=== PATIENT | female | born 1955 | race Caucasian/White ===

== ENCOUNTER 2024-10-05 00:59 | Inpatient (IN) | payer MEDICARE, OTHER ==
[2024-10-04] MEDS: DOXYCYCLINE HYCLATE 100 MG TABLET PO SCH (20:28)
[~2024-10-05] VITALS: Ht 170.2 cm; Wt 55.7 kg
[2024-10-05 02:30] LABS: BASO # 0.0 10^3/uL (0.0-0.2); BASO % 0.4 % (0.0-1.0); EOS # 0.0 10^3/uL (0.0-0.5); EOS % 0.3 % (0.0-3.0); LYMPH # 1.3 10^3/uL (1.5-5.0); LYMPH % 18.8 % (24.0-44.0); MONO # 0.5 10^3/uL (0.0-0.8); MONO % 7.4 % (2.0-8.0); NEUTROPHILS # 5.2 10^3/uL (1.5-8.5); NEUTROPHILS % 72.7 % (36.0-66.0); PLATELET COUNT, AUTOMATED 240 10^3/uL (150-450)
[2024-10-05] MEDS: NS (Normal Saline) 0.9% 1,000 ML IV ONE (02:42)
[2024-10-05] MEDS ORDERED: ISOVUE-370 76% 100 ML VIAL As Ordered ONE (02:59)
[2024-10-05 03:06] LABS: ETHYL ALCOHOL (ETHANOL) < 0.003 % (0.000-0.010)
[2024-10-05 03:08] LABS: ALT/SGPT 40 U/L (7.0-40); AST/SGOT 70 U/L (<34); CALCIUM LEVEL 9.0 MG/DL (8.3-10.6); CARBON DIOXIDE LEVEL 26 MMOL/L (20-31); CHLORIDE LEVEL 97 MMOL/L (98-107); CK-MB VALUE MASS 13.9 NG/ML (<3.6); CREATININE FOR GFR 0.86 MG/DL (0.55-1.30); GLOMERULAR FILTRATION RATE 74.0 (>45); POTASSIUM SERUM 4.1 MMOL/L (3.5-5.1); SALICYLATE LEVEL < 3.0 MG/DL (<30); SODIUM LEVEL 131 MMOL/L (136-145)
[2024-10-05 03:19] LABS: CPK CREATINE PHOSPHOKINASE 1268 U/L (34-145); MB/CK RELATIVE INDEX 1.09 (< OR =4)
[2024-10-05 03:27] LABS: OSMOLALITY SERUM 279 MOSM/KG (280-301)
[2024-10-05] MEDS ORDERED: ACYCLOVIR 1,000 MG in D5W 250 ML IV ONE (05:05)
[2024-10-05 05:10] LABS: CK-MB VALUE MASS 12.5 NG/ML (<3.6)
[2024-10-05 05:22] LABS: CPK CREATINE PHOSPHOKINASE 1164.0 U/L (34-145); MB/CK RELATIVE INDEX 1.07 (< OR =4)
[2024-10-05 06:28] LABS: KETONE, URINE AUTO RFX NEGATIVE (NEGATIVE); LEUKOCYTE ESTERASE UR AUTO RFX NEGATIVE (NEGATIVE); NITRITE, URINE AUTO RFX NEGATIVE (NEGATIVE); RBC, URINE AUTO RFX 2 /HPF (0-3); SQUAM EPITHELIAL CELL UR AURFX 0 /HPF (0-6); WBC, URINE AUTO RFX 1 /HPF (0-3)
[2024-10-05] MEDS: MINI IV ONE (06:44)
[2024-10-05] MEDS: DEXTROSE 5% IV ONE (06:44)
[2024-10-05] MEDS: ACYCLOVIR IV ONE (06:44)
[2024-10-05 06:51] LABS: AMPHETAMINES LEVEL URINE NEGATIVE (NEGATIVE); BARBITURATES URINE NEGATIVE (NEGATIVE); BENZODIAZEPINES URINE NEGATIVE (NEGATIVE); CANNABINOIDS URINE NEGATIVE (NEGATIVE); COCAINE METABOLITE URINE NEGATIVE (NEGATIVE); METHADONE URINE NEGATIVE (NEGATIVE); OPIATES URINE NEGATIVE (NEGATIVE); PHENCYCLIDINE URINE NEGATIVE (NEGATIVE)
[2024-10-05] MEDS ORDERED: RALT40TA PO (08:34)
[2024-10-05] MEDS ORDERED: DOXY100C3 PO (08:34)
[2024-10-05] MEDS ORDERED: EMTR1TAB3 PO (08:34)
[2024-10-05] MEDS ORDERED: NORV100T PO (08:34)
[2024-10-05] MEDS ORDERED: PREZ600T3 PO (08:34)
[2024-10-05] MEDS ORDERED: HOME MED LIST COMPLETE! XX SCH ×3 (08:35)
[2024-10-05 08:45] LABS: INR 1.07
[2024-10-05] MEDS: MIDODRINE 5 MG TAB PO ONE ×2 (09:00→13:05)
[2024-10-05 09:02] LABS: CALCIUM LEVEL 8.2 MG/DL (8.3-10.6); CARBON DIOXIDE LEVEL 27.0 MMOL/L (20-31); CHLORIDE LEVEL 102.0 MMOL/L (98-107); CREATININE FOR GFR 0.86 MG/DL (0.55-1.30); GLOMERULAR FILTRATION RATE 74.0 (>45); POTASSIUM SERUM 4.3 MMOL/L (3.5-5.1); SODIUM LEVEL 135.0 MMOL/L (136-145)
[2024-10-05] MEDS: LR 1,000 ML IV ONE ×4 (09:09→14:43)
[2024-10-05] MEDS: NS (Normal Saline) 0.9% 1,000 ML IV SCH ×2 (13:00→14:42)
[2024-10-05 14:38] LABS: C REACTIVE PROTEIN QUANTITATIV 0.57 MG/DL (<1.0)
[2024-10-05] MEDS: D5W IV SCH (14:42)
[2024-10-05] MEDS: DOXYCYCLINE HYCLATE 100 MG TABLET PO ONE (14:42)
[2024-10-05] MEDS: ACYCLOVIR IV SCH (14:42)
[2024-10-05 17:08] VITALS: BP 154/73; TEMP 99; O2SAT 100
[2024-10-05 17:08] LABS: ERYTHROCYTE SEDIMENTATION RATE 23 mm/hr (0-30)
[2024-10-05 19:58] VITALS: BP 121/67; TEMP 98.9; O2SAT 99
[2024-10-05 21:08] VITALS: BP 137/73
[2024-10-05 23:20] VITALS: BP 134/74; TEMP 97.8; O2SAT 99
[2024-10-06 03:54] VITALS: BP 115/71; TEMP 99.7; O2SAT 99
[2024-10-06 06:28] LABS: BASO # 0.0 10^3/uL (0.0-0.2); BASO % 1.0 % (0.0-1.0); EOS # 0.1 10^3/uL (0.0-0.5); EOS % 2.1 % (0.0-3.0); LYMPH # 1.5 10^3/uL (1.5-5.0); LYMPH % 37.9 % (24.0-44.0); MONO # 0.5 10^3/uL (0.0-0.8); MONO % 11.5 % (2.0-8.0); NEUTROPHILS # 1.8 10^3/uL (1.5-8.5); NEUTROPHILS % 47.2 % (36.0-66.0); PLATELET COUNT, AUTOMATED 217 10^3/uL (150-450)
[2024-10-06 07:02] LABS: CALCIUM LEVEL 8.6 MG/DL (8.3-10.6); CARBON DIOXIDE LEVEL 25.0 MMOL/L (20-31); CHLORIDE LEVEL 102.0 MMOL/L (98-107); CK-MB VALUE MASS 12.7 NG/ML (<3.6); CREATININE FOR GFR 0.83 MG/DL (0.55-1.30); GLOMERULAR FILTRATION RATE 77.2 (>45); MAGNESIUM LEVEL 1.9 MG/DL (1.8-2.4); POTASSIUM SERUM 4.0 MMOL/L (3.5-5.1); SODIUM LEVEL 135.0 MMOL/L (136-145)
[2024-10-06 07:13] LABS: CPK CREATINE PHOSPHOKINASE 1267.0 U/L (34-145); MB/CK RELATIVE INDEX 1.0 (< OR =4)
[2024-10-06 07:54] VITALS: BP 123/70; TEMP 97.4; O2SAT 100
[2024-10-06] MEDS ORDERED: VALA500T5 PO (08:03)
[2024-10-06] MEDS ORDERED: DOXY100T PO (08:03)
[2024-10-06] MEDS: LR 1,000 ML IV ONE (11:02)
[2024-10-06] MEDS: NS (Normal Saline) 0.9% 1,000 ML IV SCH (12:48)
[2024-10-06] MEDS ORDERED: traZODone 50 MG TAB PO PRN (15:35)
[2024-10-06] MEDS ORDERED: KEPP1TAB PO (16:12)
[2024-10-06] MEDS ORDERED: OLAN1TAB16 PO (16:21)
[2024-10-06] MEDS ORDERED: HYDR-3363 PO (16:21)
[2024-10-06] MEDS ORDERED: TRAZ-252 PO (16:21)
[2024-10-06 16:49] VITALS: BP 150/82; TEMP 97.7; O2SAT 100
[2024-10-06 19:59] VITALS: BP 128/76; TEMP 97.3; O2SAT 98
[2024-10-06] MEDS: OLANZapine 5 MG TAB PO SCH (21:00)
[2024-10-07 03:34] VITALS: BP 132/74; TEMP 97.5; O2SAT 98
[2024-10-07 06:21] LABS: BASO # 0.0 10^3/uL (0.0-0.2); BASO % 0.8 % (0.0-1.0); EOS # 0.1 10^3/uL (0.0-0.5); EOS % 1.8 % (0.0-3.0); LYMPH # 1.6 10^3/uL (1.5-5.0); LYMPH % 32.1 % (24.0-44.0); MONO # 0.5 10^3/uL (0.0-0.8); MONO % 10.8 % (2.0-8.0); NEUTROPHILS # 2.7 10^3/uL (1.5-8.5); NEUTROPHILS % 54.1 % (36.0-66.0); PLATELET COUNT, AUTOMATED 233 10^3/uL (150-450)
[2024-10-07 06:46] LABS: CALCIUM LEVEL 8.6 MG/DL (8.3-10.6); CARBON DIOXIDE LEVEL 26.0 MMOL/L (20-31); CHLORIDE LEVEL 103.0 MMOL/L (98-107); CK-MB VALUE MASS 7.7 NG/ML (<3.6); CPK CREATINE PHOSPHOKINASE 818.0 U/L (34-145); CREATININE FOR GFR 0.78 MG/DL (0.55-1.30); GLOMERULAR FILTRATION RATE 83.2 (>45); MAGNESIUM LEVEL 1.8 MG/DL (1.8-2.4); MB/CK RELATIVE INDEX 0.94 (< OR =4); POTASSIUM SERUM 4.2 MMOL/L (3.5-5.1); SODIUM LEVEL 137.0 MMOL/L (136-145)
[2024-10-07] MEDS: NS (Normal Saline) 0.9% 1,000 ML IV SCH (08:52)
[2024-10-07 12:29] VITALS: BP 131/74; TEMP 97.3; O2SAT 99
[2024-10-07] MEDS: DARUNAVIR 600 MG PO SCH (13:48)
[2024-10-07] MEDS: NORVIR 100 MG PO SCH (13:48)
[2024-10-07] MEDS: TRUVADA PO SCH (13:49)
[2024-10-07] MEDS: ISENTRESS 400 MG PO SCH (13:49)
[2024-10-07 20:26] VITALS: BP 142/84; TEMP 97.3; O2SAT 99
[2024-10-07] MEDS: traZODone 50 MG TAB PO SCH (21:00)
[2024-10-08 04:36] VITALS: BP 139/83; TEMP 97.3; O2SAT 99
[2024-10-08] MEDS: MAG SULF 1GM/100ML (MAG RUN) 1 GM in IV 1 EA IV ONE (05:05)
[2024-10-08] MEDS: NS (Normal Saline) 0.9% 1,000 ML IV SCH (05:07)
[2024-10-08 06:33] LABS: BASO # 0.0 10^3/uL (0.0-0.2); BASO % 0.8 % (0.0-1.0); EOS # 0.0 10^3/uL (0.0-0.5); EOS % 0.8 % (0.0-3.0); LYMPH # 1.4 10^3/uL (1.5-5.0); LYMPH % 27.6 % (24.0-44.0); MONO # 0.4 10^3/uL (0.0-0.8); MONO % 8.3 % (2.0-8.0); NEUTROPHILS # 3.2 10^3/uL (1.5-8.5); NEUTROPHILS % 62.3 % (36.0-66.0); PLATELET COUNT, AUTOMATED 225 10^3/uL (150-450)
[2024-10-08 06:58] LABS: CK-MB VALUE MASS 5.2 NG/ML (<3.6)
[2024-10-08 07:01] LABS: CALCIUM LEVEL 9.1 MG/DL (8.3-10.6); CARBON DIOXIDE LEVEL 30.0 MMOL/L (20-31); CHLORIDE LEVEL 99.0 MMOL/L (98-107); CPK CREATINE PHOSPHOKINASE 448.0 U/L (34-145); CREATININE FOR GFR 0.76 MG/DL (0.55-1.30); GLOMERULAR FILTRATION RATE 85.8 (>45); MAGNESIUM LEVEL 1.8 MG/DL (1.8-2.4); MB/CK RELATIVE INDEX 1.16 (< OR =4); POTASSIUM SERUM 4.5 MMOL/L (3.5-5.1); SODIUM LEVEL 135.0 MMOL/L (136-145)
[2024-10-08 12:31] VITALS: BP 137/80; TEMP 97.2; O2SAT 98
[2024-10-08 20:18] VITALS: BP 129/84; TEMP 97.3; O2SAT 99
[2024-10-09 04:14] VITALS: BP 133/81; TEMP 97.3; O2SAT 97
[2024-10-10 05:12] LABS: BORRELIA SPECIES DNA NOT DETECTED (NOT DETECT)
== END 2024-10-09 11:24 | disposition home or self-care (01) | DRG 97 ==
LOC: M ED 00:59 → M ED INP 07:41 → M PCU 17:06 → M MSPAV 10-06 16:41
PROVIDERS: ADMIT General Practice; ATTEND General Practice
DX: A84.8 Other tick-borne viral encephalitis (principal); G93.41 Metabolic encephalopathy; A69.20 Lyme disease, unspecified; M62.82 Rhabdomyolysis; E87.1 Hypo-osmolality and hyponatremia; J98.11 Atelectasis; D84.9 Immunodeficiency, unspecified; Z21 Asymptomatic human immunodeficiency virus [HIV] infection status; M17.12 Unilateral primary osteoarthritis, left knee; Z85.41 Personal history of malignant neoplasm of cervix uteri; Z90.79 Acquired absence of other genital organ(s); E83.51 Hypocalcemia; Z79.2 Long term (current) use of antibiotics; Z79.899 Other long term (current) drug therapy; Z88.1 Allergy status to other antibiotic agents; Z88.2 Allergy status to sulfonamides; Z88.7 Allergy status to serum and vaccine; Z88.8 Allergy status to other drugs, medicaments and biological substances